=== PATIENT | female | born 1955 | race Caucasian/White ===

== ENCOUNTER 2021-07-22 07:38 | Day surgery (SDC) | payer MEDICARE ==
[~2021-07-22] VITALS: Ht 162.6 cm; Wt 74.8 kg
[~2021-07-22 07:38] MED LIST: CHOLESTEROL; ECHINACE9 PO; GLIPIZIDE; GLIPIZIDE ER2.5 MG PO; LIPITOR20 MG PO; METFORMIN500 M2 PO; WARFARIN
[2021-07-22 09:57] VITALS: BP 129/62
== END 2021-07-22 10:10 | disposition home or self-care (01) ==
LOC: ORM 07:38
PROVIDERS: ATTEND Surgery
PROC: 0DJD8ZZ Inspection of Lower Intestinal Tract, Via Natural or Artificial Opening Endoscopic (ICD-10-PCS; principal; 2021-07-22)
DX: K57.30 Diverticulosis of large intestine without perforation or abscess without bleeding (principal); Q43.8 Other specified congenital malformations of intestine; E11.9 Type 2 diabetes mellitus without complications; Z79.84 Long term (current) use of oral hypoglycemic drugs; Z83.71 Family history of colonic polyps